=== PATIENT | male | born 1955 | race Two or more races ===

== ENCOUNTER 2024-06-05 11:42 | Inpatient (IN) | payer OTHER ==
[~2024-06-05] VITALS: Ht 177.8 cm; Wt 108.7 kg
[~2024-06-05 11:42] MED LIST: GENT0.1C3 EX; PRED10TA PO
--- NOTE | 2024-06-05 11:58 | ED.PDOC ---
HPI Comments HPI: Poor Historian. History obtained from both the patient and EMS 68-year-old male brought in by ambulance from home for evaluation of a fall that happened at home. When EMS arrived, patient stated that he fell because he felt very dizzy when he was getting out of bed. When they checked his initial vitals his heart rate was in the 40s and his blood pressure was in the 80s and he felt weak and wobbly. His blood pressure and heart rate improved as they lifted him up and he feels better at this moment that he feel generalized weakness still. Patient is still undergoing treatment for pneumonia on antibiotics but does not know the name of it. Patient is not on oxygen at home. Patient is on albuterol and prednisone. Vitals: Temp: 98.3 F RR: 20 02 sat : 97% on room air HR: 91 BP: 141/73 PMH: CKD on peritoneal dialysis, DM, Hypertension,hyperlipidemia, bradycardia anemia, sleep apnea, TIA, L carotid stenosis, cryptogenic cirrhosis, diabetic foot ulcer, hyperphosphatemia, TIA, PSH: unknown Social history: denies tobacco use, denies ETOH use, denies drug use Medications: insulin Allergies: NSAIDS REVIEW OF SYSTEMS: CONSTITUTIONAL: Denies acute: fever, diaphoresis, chills, HEAD: Denies acute: headache, photophobia Eyes: Denies acute: Double vision, vision loss, eye pain, eye discharge. EARS: Denies acute: tinnitus, hearing loss, ear discharge, ear pain, THROAT: Denies acute: sore throat, swelling, difficulty swallowing , pain with swallowing, change in voice. NECK: Denies acute: neck pain, neck swelling, stiff neck. HEART: Denies acute : chest pain, palpitations, LUNGS: Denies acute: SOB, wheezing, cough, hemoptysis ABDOMEN: Denies acute: abdominal pain, Nausea, Vomiting, diarrhea, melena , hematemesis, hematochezia SKIN: Denies acute: rash, redness, lesions, itchiness. EXTREMITIES: Denies acute: calf pain, numbness, tingling, weakness, denies pain in extremity. Denies acute: Low back pain. Neuro: Denies acute: focal neurological deficit, motor or sensory focal neurological deficit, tremors, seizure like activity, confusion, change in mental status, loss of bowel or bladder function, cauda equina like symptoms. : Denies acute: dysuria, hematuria, flank pain, increase in urinary frequency. PSYCH: Denies acute: hallucination, suicidal ideation, homicidal ideation. PHYSICAL EXAM: General: no acute distress, awake and alert. Head: normocephalic, atraumatic. Neck: supple, trachea is midline, no swelling. Throat: Normal phonation. Eyes:, no erythema, no purulent discharge, no proptosis, no icterus. Heart: regular rate, regular rhythm, no significant murmur appreciated. Lungs: no apparent respiratory distress, Able to speak in full sentences. Mild right greater than left wheezing, right greater than left rhonchi, no crackles. No stridors Abdomen: non tender to palpation, non distended, soft, no guarding, no rebound, + bowel sounds. Noted peritoneal dialysis catheter. Neuro: Awake, Alert, oriented to name, self, situation, follows commands GCS=15. Speech is normal. Skin: no petechia, no purpura, no cyanosis, non-pale, not jaundice. Lower extremities: --2/4 - Pitting edema no deformity, no focal swelling, no calf TTP. Makes eye contact. moves all four extremities. Chief Complaint: Shortness of Breath Time Seen by MD: 11:47 Reviewed Notes: Nurses Notes, Medications, Allergies Allergies: Coded Allergies: NSAIDs (Verified Allergy, Unknown, 06/05/24) Information Source: Patient, Emergency Med Personnel Mode of Arrival: EMS Past Medical History PAST MEDICAL HISTORY: DM, High Lipids, TIA Surgical History: Unknown Family History Family History: Unknown Social History Smoker: Non-Smoker Alcohol: Denies ETOH Use Drugs: Denies Drug Use Lives In: Home Was a procedure done? Was a procedure done?: No X-Ray, Labs, Meds, VS Vital Signs Date Time Temp Pulse Resp B/P (MAP) Pulse Ox O2 Delivery O2 Flow Rate FiO2 06/05/24 16:00 83 25 155/68 (97) 99 06/05/24 16:00 83 06/05/24 15:31 133/62 06/05/24 14:56 83 06/05/24 14:40 82 25 92 Room Air* 0 21 06/05/24 14:36 98.0 82 25 155/63 (93) 98.0 06/05/24 12:17 88 18 96 Room Air* 0 06/05/24 12:16 97.8 88 18 136/67 (90) 96 97.8 06/05/24 12:12 20 97 Room Air* 0 21 06/05/24 12:05 98.3 92 20 141/73 (95) 97 06/05/24 11:42 89 Lab Test 06/05/24 15:14 06/05/24 13:04 06/05/24 12:20 Range/Units Lactic Acid Level 1.6 3.5 *H 0.4-2.0 mmol/L Troponin I High Sensitivity 164 *H 190 *H 187 *H </=54 ng/L White Blood Count 9.8 4.4-10.8 10^3/uL Red Blood Count 3.02 L 4.5-5.90 10^6/uL Hemoglobin 9.7 L 13.5-17.5 g/dL Hematocrit 28.9 L 41.0-53.0 % Mean Corpuscular Volume 95.5 80.0-100.0 fL Mean Corpuscular Hemoglobin 32.0 28.0-32.0 pg Mean Corpuscular Hemoglobin Concent 33.5 32.0-36.0 g/dL Red Cell Distribution Width 17.2 H 11.8-14.3 % Platelet Count 195 140-450 10^3/uL Mean Platelet Volume 7.1 6.9-10.8 fL Neutrophils (%) (Auto) 86.4 H 37.0-80.0 % Lymphocytes (%) (Auto) 4.1 L 10.0-50.0 % Monocytes (%) (Auto) 8.5 0.0-12.0 % Eosinophils (%) (Auto) 0.4 0.0-7.0 % Basophils (%) (Auto) 0.6 0.0-2.0 % Neutrophils # (Auto) 8.5 1.6-8.6 10 ^3/uL Lymphocytes # (Auto) 0.4 0.4-5.4 10 ^3/uL Monocytes # (Auto) 0.8 0-1.3 10 ^3/uL Eosinophils # (Auto) 0 0-0.8 10 ^3/uL Basophils # (Auto) 0.1 0-0.2 10 ^3/uL Nucleated Red Blood Cells 0.3 % Sodium Level 131 L 136-145 mmol/L Potassium Level 5.0 3.5-5.1 mmol/L Chloride Level 92 L 98-107 mmol/L Carbon Dioxide Level 25 20-31 mmol/L Anion Gap 14 5-15 Blood Urea Nitrogen 60 H 9-23 mg/dL Creatinine 11.19 *H 0.700-1.30 mg/dL Glomerular Filtration Rate Calc 5 >90 mL/min BUN/Creatinine Ratio 5.4 L 10.0-20.0 Serum Glucose 257 H 74-106 mg/dL Calcium Level 9.7 8.7-10.4 mg/dL Total Bilirubin < 0.2 L 0.2-1.0 mg/dL Aspartate Amino Transferase (AST) 11 L 13-40 U/L Alanine Aminotransferase (ALT) 18 7-40 U/L Alkaline Phosphatase 119 H 46-116 U/L B-Type Natriuretic Peptide 378.25 0-100 pg/mL Total Protein 6.6 5.7-8.2 g/dL Albumin 3.9 3.2-4.8 g/dL Current Medications Medications (Trade) Dose Ordered Sig/Curt Route Start Time Stop Time Status Last Admin Piperacillin Sod/ Tazobactam Sod 100 ml @ 100 mls/hr ONCE ONCE IV 06/05/24 15:00 06/05/24 15:59 DC 06/05/24 15:31 Furosemide (Lasix Injection) 40 mg ONCE ONCE IV 06/05/24 15:00 06/05/24 15:02 DC 06/05/24 15:31 [place] [address] Ph: [phone] DIAGNOSTIC IMAGING Diagnostic Imaging Report : [id number] Signed PATIENT: JA SHELDON ACCT: [id number] UNIT: [id number] : 1955 LOC: ER ROOM / BED: / AGE / SEX: 68 / M ADM STATUS: REG ER SERVICE 1159 ORDERING PHYSICIAN: BAN ESCALONA DO PROCEDURE(s): CXRP - CHEST PORTABLE REASON: weak, hypotensive, kobi, PNA ORDER NUMBER(s): [id number], ACCESSION NUMBER(s): [id number] EXAM: XY CHEST PORTABLE Indication: weak, hypotensive, kobi, PNA Technique: Single frontal view of the chest was obtained Comparison: None FINDINGS: Lines and Tubes: None Lungs: Diffuse interstitial opacities. Pleura: No effusion. No pneumothorax. Cardiomediastinal contours: Unremarkable Bones: No acute osseous abnormality. IMPRESSION: Diffuse interstitial opacities suggestive of pulmonary vascular congestion versus atypical infection. ATED BY: CLINTON DO MD DICTATED DATE/TIME: 06/05/241306 SIGNED BY: CLINTON DO MD SIGNED DATE/TIME: 06/05/241306 CC: Time of 1ST Reevaluation: 15:18 (The case was discussed with the [facility] admitting team (HPI, physical exam, labs and diagnostic tests that were available at the time of disposition, ED course, treatment plan) on the phone. They authorized us to admit the patient to our hospital/ service given that the patient's troponin is rising. Authorization #[id number] Dr. Guillaume) Patient Education/Counseling: Diagnosis, Treatment Family Education/Counseling: No Family Present Additional Information Patient presented with the above HPI.-- fall injury---workup was initiated. patient was found with the above mentioned diagnosis. the following medications were ordered: Lasix, Zosyn the following tests were ordered: EKGx3, troponin x3, chest x-ray, UA, lactic acid, CMP, CBC, BNP Patient ED course and VS have been stabilized. Patient has been reassessed in the ED and remained in a stable condition. Patient has been observed in the ED adequate length of time to insure improvement/stability. Escalation of care considered: Consideration of escalation to observation or admission. patient was admitted to the medicine team for further evaluation and treatment of their presentation. All the reports of any imaging studies that were ordered by myself were reviewed by myself. Departure 1 Departure Time of Disposition: 12:52 Impression: Primary Impression: Hypotension Additional Impressions: Elevated troponin Elevated lactic acid level End stage renal disease NSTEMI (non-ST elevated myocardial infarction) Disposition: ADMITTED INPATIENT Condition: Guarded Discharged With: Self Critical Care Note Critical Care Time?: No Heart Score Heart Score: Heart Score Response (Comments) Value History Moderate Suspicious 1 Age >65 2 Risk Factors >3 or Hx ASHD 2 Troponin >3 x's Normal limit 2 Total 7 I personally scribed for BAN ESCALONA DO ([email or web address]) on 06/05/24 at 15:34. Electronically submitted by Nicci Maza (VÍCTOR). BAN ESCALONA DO Jun 05, 2024 11:58
[2024-06-05 12:17] VITALS: PULSE 88; RESP 18; O2SAT 96
[2024-06-05 12:33] LABS: Basophils # (auto) 0.1 10 ^3/uL (0-0.2); Basophils % (auto) 0.6 % (0.0-2.0); Eosinophils # (auto) 0 10 ^3/uL (0-0.8); Eosinophils % (auto) 0.4 % (0.0-7.0); Hematocrit 28.9 % (41.0-53.0); Hemoglobin 9.7 g/dL (13.5-17.5); Lymphocytes # (auto) 0.4 10 ^3/uL (0.4-5.4); Lymphocytes % (auto) 4.1 % (10.0-50.0); Mean Corpuscular Hgb Conc. 33.5 g/dL (32.0-36.0); Mean Corpuscular Volume 95.5 fL (80.0-100.0); Monocytes # (auto) 0.8 10 ^3/uL (0-1.3); Monocytes % (auto) 8.5 % (0.0-12.0); Neutrophils # (auto) 8.5 10 ^3/uL (1.6-8.6); Neutrophils % (auto) 86.4 % (37.0-80.0); Nucleated Red Blood Cells % 0.3 %; Platelet Count (auto) 195 10^3/uL (140-450); Red Blood Cells 3.02 10^6/uL (4.5-5.90); Red Cell Distribution Width 17.2 % (11.8-14.3); White Blood Cell 9.8 10^3/uL (4.4-10.8)
[2024-06-05 12:46] LABS: Alanine Aminotransferase 18 U/L (7-40); Albumin 3.9 g/dL (3.2-4.8); Anion Gap 14 (5-15); BUN/Creatinine Ratio 5.4 (10.0-20.0); Calcium 9.7 mg/dL (8.7-10.4); Carbon Dioxide 25 mmol/L (20-31); Total Protein 6.6 g/dL (5.7-8.2)
[2024-06-05 12:48] LABS: Blood Urea Nitrogen 60 mg/dL (9-23); Chloride 92 mmol/L (98-107); Glucose 257 mg/dL (74-106); Sodium 131 mmol/L (136-145)
[2024-06-05 12:50] LABS: Alkaline Phosphatase 119 U/L (46-116); Aspartate Aminotransferase 11 U/L (13-40)
[2024-06-05 12:51] LABS: Lactic Acid w/Reflex 3.5 mmol/L (0.4-2.0)
[2024-06-05 13:04] LABS: Bilirubin, Total < 0.2 mg/dL (0.2-1.0)
--- NOTE | 2024-06-05 13:08 | DVH ---
EXAM: XY CHEST PORTABLE Indication: weak, hypotensive, kobi, PNA Technique: Single frontal view of the chest was obtained Comparison: None FINDINGS: Lines and Tubes: None Lungs: Diffuse interstitial opacities. Pleura: No effusion. No pneumothorax. Cardiomediastinal contours: Unremarkable Bones: No acute osseous abnormality. IMPRESSION: Diffuse interstitial opacities suggestive of pulmonary vascular congestion versus atypical infection.
[2024-06-05 14:40] VITALS: PULSE 82; RESP 25; O2SAT 92
[2024-06-05] MEDS: PIPERACILLIN-TAZOB 3.375GM 100 ML IV ONE (15:31)
[2024-06-05] MEDS: FUROSEMIDE 40 MG/4 ML VIAL IV ONE (15:31)
[2024-06-05] MEDS ORDERED: ONDANSETRON HCL 4 MG/2 ML VIAL IV PRN (16:30)
[2024-06-05] MEDS ORDERED: NITROGLYCERIN 0.4 MG SL TAB SL PRN (16:30)
[2024-06-05] MEDS ORDERED: ZOLPIDEM TARTRATE 5 MG TAB PO PRN (16:30)
[2024-06-05] MEDS ORDERED: MORPHINE SULFATE 4 MG/ML SYR/VIAL IV PRN (16:30)
[2024-06-05] MEDS ORDERED: MAALOX PLUS or MAALOX 30 ML PO PRN (16:30)
[2024-06-05] MEDS ORDERED: LORazepam 0.5 MG TAB PO PRN (16:30)
--- NOTE | 2024-06-05 16:44 | DVHHP2 ---
History of Present Illness Reason for Visit: Cough shortness of breath History of Present Illness 68-year-old past medical history of hypertension hyperlipidemia sleep apnea TIA liver cirrhosis and ESRD on peritoneal dialysis patient comes for complaints of shortness of breath and cough patient on initial evaluation was shown to have pneumonia in outpatient setting during the pneumonia patient was evaluated in outpatient setting given p.o. antibiotics states that he has not improved whatsoever during the evaluation in the ED patient was being treated for pneumonia and during blood work evaluation was also found to have elevated troponins patient will be admitted for the further evaluation and management of community-acquired pneumonia and also noted troponinemia Cardiovascular: CAD, CHF, HTN Pulmonary: COPD Renal/: Chronic renal insuff Endocrine: Diabetes Review of Systems Constitutional: Yes: Weakness; No: Fever, Chills, Sweats, Malaise, Other Eyes: No: Pain, Vision change, Conjunctivae inflammation, Eyelid inflammation, Other, Redness ENT: No: Ear pain, Ear discharge, Nose pain, Nose discharge, Nose congestion, Mouth pain, Mouth swelling, Throat pain, Throat swelling, Other Respiratory: Cough, Dry, Shortness of breath, SOB with excertion; No: Wheezing, Hemoptysis, Pleuritic Pain, Sputum, Wheezing, Other Cardiovascular: Chest Pain, Palpitations; No: Orthopnea, Paroxysmal Noc. Dyspnea, Edema, Lt Headedness, Other Gastrointestinal: No: Nausea, Vomiting, Abdominal Pain, Diarrhea, Constipation, Melena, Hematochezia, Other Genitourinary: No Dysuria, No Frequency, No Incontinence, No Hematuria, No Retention, No Other Musculoskeletal: No: other, neck pain, shoulder pain, arm pain, back pain, hand pain, leg pain, foot pain Skin: No: Rash, Lesions, Jaundice, Bruising, Other Neurological: No: Weakness, Numbness, Incoordination, Change in speech, Confusion, Seizures, Other Allergies: Coded Allergies: NSAIDs (Verified Allergy, Unknown, 06/05/24) Exam Vital Signs Vital Signs Date Time Temp Pulse Resp B/P (MAP) Pulse Ox O2 Delivery O2 Flow Rate FiO2 06/05/24 15:31 133/62 06/05/24 14:56 83 06/05/24 14:36 98.0 25 98.0 06/05/24 12:17 96 Room Air* 0 21 General Appearance: Alert, Oriented X3, moderate distress HEENT: Atraumatic, PERRLA Respiratory: Clear to auscultation, Normal air movement Cardiovascular: Regular rate, Normal S1, Normal S2 Abdominal: Normal bowel sounds, Soft Extremities: No clubbing, No cyanosis Skin: No rashes, No breakdown Neuro: Normal gait, Normal speech Psych/Mental Status: Mood NL Labs/Xrays Labs Test 06/05/24 15:14 06/05/24 12:20 Range/Units Lactic Acid Level 1.6 0.4-2.0 mmol/L Troponin I High Sensitivity 164 *H </=54 ng/L White Blood Count 9.8 4.4-10.8 10^3/uL Red Blood Count 3.02 L 4.5-5.90 10^6/uL Hemoglobin 9.7 L 13.5-17.5 g/dL Hematocrit 28.9 L 41.0-53.0 % Mean Corpuscular Volume 95.5 80.0-100.0 fL Mean Corpuscular Hemoglobin 32.0 28.0-32.0 pg Mean Corpuscular Hemoglobin Concent 33.5 32.0-36.0 g/dL Red Cell Distribution Width 17.2 H 11.8-14.3 % Platelet Count 195 140-450 10^3/uL Mean Platelet Volume 7.1 6.9-10.8 fL Neutrophils (%) (Auto) 86.4 H 37.0-80.0 % Lymphocytes (%) (Auto) 4.1 L 10.0-50.0 % Monocytes (%) (Auto) 8.5 0.0-12.0 % Eosinophils (%) (Auto) 0.4 0.0-7.0 % Basophils (%) (Auto) 0.6 0.0-2.0 % Neutrophils # (Auto) 8.5 1.6-8.6 10 ^3/uL Lymphocytes # (Auto) 0.4 0.4-5.4 10 ^3/uL Monocytes # (Auto) 0.8 0-1.3 10 ^3/uL Eosinophils # (Auto) 0 0-0.8 10 ^3/uL Basophils # (Auto) 0.1 0-0.2 10 ^3/uL Nucleated Red Blood Cells 0.3 % Sodium Level 131 L 136-145 mmol/L Potassium Level 5.0 3.5-5.1 mmol/L Chloride Level 92 L 98-107 mmol/L Carbon Dioxide Level 25 20-31 mmol/L Anion Gap 14 5-15 Blood Urea Nitrogen 60 H 9-23 mg/dL Creatinine 11.19 *H 0.700-1.30 mg/dL Glomerular Filtration Rate Calc 5 >90 mL/min BUN/Creatinine Ratio 5.4 L 10.0-20.0 Serum Glucose 257 H 74-106 mg/dL Calcium Level 9.7 8.7-10.4 mg/dL Total Bilirubin < 0.2 L 0.2-1.0 mg/dL Aspartate Amino Transferase (AST) 11 L 13-40 U/L Alanine Aminotransferase (ALT) 18 7-40 U/L Alkaline Phosphatase 119 H 46-116 U/L B-Type Natriuretic Peptide 378.25 0-100 pg/mL Total Protein 6.6 5.7-8.2 g/dL Albumin 3.9 3.2-4.8 g/dL Assessment/Plan Assessment/Plan Admit to telemetry Community-acquired pneumonia IV antibiotics Patient is started on vanc and Zosyn in the ED we will continue P.r.n. breathing treatments Patient with a history of ESRD elevated labs in the setting of ESRD Renal evaluation for the continuation of peritoneal dialysis which patient does nightly We will continue patient's home medications as tolerated Elevated troponins Patient denies any symptoms of chest pain Cardiology evaluation suspected troponinemia in the signs of fluid overload and cardiac stress Plan discussed with: Patient My Orders Orders - LIZANDRO PERDOMO MD Procedure Category Date Status Time *Dr. [facility] CONS 06/05/24 Transmitted -[place] 16:26 * Cardiology Consult CONS 06/05/24 Transmitted 16:26 Admit ADMIT 06/05/24 Transmitted 16:26 Code Status CODE 06/05/24 Transmitted 16:26 Cardiac DIET 06/05/24 Transmitted Diet-2gna,Lofat,Lochol Dinner Atorvastatin (Lipitor) PHA 06/05/24 Logged 22:00 Carvedilol Tablet PHA 06/05/24 Logged (Coreg Tablet) 22:00 Morphine Sulfate PHA 06/05/24 Logged Injection 16:30 Acetaminophen Tablet PHA 06/05/24 Logged (Tylenol Tablet) 16:30 Zolpidem Tartrate PHA 06/05/24 Logged (Ambien) 16:30 Lorazepam Tablet PHA 06/05/24 Logged (Ativan Tablet) 16:30 Docusate Sodium PHA 06/06/24 Logged Capsule (Colace 10:00 Complete Blood Count LAB 06/06/24 Verified 04:00 Comprehensive LAB 06/06/24 Verified Metabolic Panel 04:00 Nitroglycerin PHA 06/05/24 Logged Sublingual (Ntrostat 16:30 Ondansetron Hcl PHA 06/05/24 Logged (Zofran) 16:30 Electrocardigram EKG 06/05/24 Logged 16:26 Alum & Mag PHA 06/05/24 Logged Hydrox-Simethicone 16:30 Troponin-I Hs LAB 06/05/24 Logged 16:26 Lisinopril Tablet PHA 06/06/24 Logged (Zestril Tablet) 10:00 Cardiac ROCÍO 06/05/24 In Process Rehabilitation - Outpa Notify Md Of Changes [facility] 06/05/24 In Process From Base 16:26 Computer Systems Technology Instructor For [facility] 06/05/24 In Process 24 Hours 16:26 Emergency Dysrhythmia [facility] 06/05/24 In Process Protocol 16:26 Rhythm Strips Once [facility] 06/05/24 In Process Every Shift 16:26 Oxygen By Nasal RT 06/05/24 Transmitted Cannula 16:26 Vancomycin Per PHA 06/05/24 Logged Pharmacy 16:45 Piperacillin-Tazob [facility] 06/05/24 Logged 3.375gm (Zosyn 3.375g 22:00 Problem List: (1) End stage renal disease (2) Elevated troponin (3) NSTEMI (non-ST elevated myocardial infarction) (4) Elevated lactic acid level Date of Service: Jun 05, 2024 Billing Provider: LIZANDRO PERDOMO MD Common Visit Codes: 62711-[id number] INP/OBS CARE (HIGH) LIZANDRO PERDOMO MD Jun 05, 2024 16:44
[2024-06-05] MEDS ORDERED: VANCOMYCIN PER PHARMACY 0 MG IV SCH (16:45)
[2024-06-05] MEDS: VANCOMYCIN 1GM/250ML KIT 250 ML IV ONE (17:52)
--- NOTE | 2024-06-05 18:56 | ECG ---
[facility] Test Date: 2024-06-05 Test Time: 11:41:44 Pat Name: TREVOR SHELDON Department: ED Room: 0209T Gender: M Taproom Attendant: JENAE : 1955 Requested By: BAN ESCALONA Order Number: [id number] Reading MD: Perry Ward Measurements Intervals [place] Rate: 89 P: 162 RI: 220 QRS: -7 QRSD: 77 T: 6 QT: 337 QTc: 410 Interpretive Statements Sinus or ectopic atrial rhythm Prolonged RI interval Borderline ST depression, diffuse leads Electronically Signed On 06-12-2024 9:46:14 PST by Perry Ward Please click the below link to view image of tracing.
[2024-06-05 19:20] VITALS: O2SAT 94
[2024-06-05] MEDS ORDERED: PIPERACILLIN-TAZOB 3.375GM 100 ML IV SCH (22:00)
[2024-06-05] MEDS: PIPERACILLIN-TAZOB 2.25GM 50 ML IV SCH (22:28)
[2024-06-05] MEDS: CARVEDILOL 3.125 MG TAB PO SCH (22:28)
[2024-06-05] MEDS: ATORVASTATIN 20 MG TAB PO SCH (22:29)
[2024-06-05 23:27] VITALS: BP 119/99; PULSE 95; RESP 19; TEMP 97.7; O2SAT 97
[2024-06-05 23:52] VITALS: BP 119/99; PULSE 95; RESP 18; RESP 19; TEMP 97.7; O2SAT 97
[2024-06-06] VITALS (17 sets, daily range): BP systolic 119–186; BP diastolic 43–99; PULSE 73–90; RESP 18–20; TEMP 97.5–98.1; O2SAT 91–100
[2024-06-06] MEDS ORDERED: TERA1CAP52 PO (00:31)
[2024-06-06] MEDS ORDERED: ATOR10TA PO (00:31)
[2024-06-06] MEDS ORDERED: ALLO100T PO (00:31)
[2024-06-06] MEDS: ALBUTEROL SULF 2.5 MG/0.5ML(0.5%) NEB SOLN NEB PRN (02:20)
[2024-06-06] MEDS: ALBUTEROL SULF 2.5 MG/0.5ML(0.5%) NEB SOLN ONE (02:20)
[2024-06-06 07:16] LABS: Hematocrit 25.8 % (41.0-53.0); Hemoglobin 8.8 g/dL (13.5-17.5); Mean Corpuscular Hemoglobin 32.2 pg (28.0-32.0); Mean Corpuscular Hgb Conc. 34.2 g/dL (32.0-36.0); Platelet Count (auto) 182 10^3/uL (140-450); Red Blood Cells 2.74 10^6/uL (4.5-5.90); Red Cell Distribution Width 16.5 % (11.8-14.3); White Blood Cell 8.5 10^3/uL (4.4-10.8)
[2024-06-06 07:41] LABS: Alanine Aminotransferase 18 U/L (7-40); Albumin 3.5 g/dL (3.2-4.8); Alkaline Phosphatase 99 U/L (46-116); Anion Gap 15 (5-15); Aspartate Aminotransferase 21 U/L (13-40); BUN/Creatinine Ratio 7.1 (10.0-20.0); Calcium 8.9 mg/dL (8.7-10.4); Carbon Dioxide 26 mmol/L (20-31)
[2024-06-06 07:43] LABS: Band Neutrophils % (manual) 0
[2024-06-06 07:44] LABS: Basophils % (manual) 0 (0.0-2.0); Blast Cells 0; Eosinophils % (manual) 0 (0-7); Metamyelocytes % 0; Myelocytes % 0; Promyelocytes % 0; Reactive Lymphocytes 0
[2024-06-06 07:52] LABS: Blood Urea Nitrogen 88 mg/dL (9-23); Chloride 88 mmol/L (98-107); Glucose 237 mg/dL (74-106); Potassium 5.4 mmol/L (3.5-5.1); Sodium 129 mmol/L (136-145)
[2024-06-06 07:53] LABS: Bilirubin, Total < 0.2 mg/dL (0.2-1.0); Total Protein 5.6 g/dL (5.7-8.2)
[2024-06-06 08:56] LABS: Lymphocytes % (manual) 9 (10.0-50.0); Monocytes % (manual) 9 (0-12); Platelet Estimate Adequate
[2024-06-06] MEDS: LISINOPRIL 5 MG TAB PO SCH (10:09)
[2024-06-06] MEDS: DOCUSATE SOD 100 MG CAP PO SCH (10:09)
--- NOTE | 2024-06-06 12:08 | DVHINCON2 ---
Date Seen: Jun 06, 2024 Referring Physician MD Tj Reason for Consultation Elevated troponins History of Present Illness 68-year-old male with PMH for HTN, HLD, diabetes, WOODY, TIA, ESRD on PD presented to the hospital with cough and shortness of breath. Patient states symptoms started roughly 1 week prior and has progressively gotten worse. Patient actually went to urgent care last week for which he was given antibiotics so did not help. Upon evaluation in the ED patient noted to have CXR showing diffuse interstitial opacities suggestive of pulmonary vascular congestion versus atypical infection. BNP 378. Troponins trending 187, 190, 164, 152. Lactic acid 3.5. Patient denies any chest pain, palpitations. EKG reviewed and shows sinus rhythm at 83 bpm. Past Medical History HTN ESRD on PD HLD WOODY Past Surgical History Denies previous cardiac surgeries Family History: Hypertension G8 MOTHER G8 FATHER Social History Denies alcohol, tobacco, or illicit drug use. Allergies: Coded Allergies: NSAIDs (Verified Allergy, Unknown, 06/05/24) Home Meds Reported Medications Terazosin Hcl (Terazosin Hcl) 1 Mg Cap, 1 MG PO for 30 Days, MG 06/06/24 Atorvastatin Calcium (Lipitor) 10 Mg Tab, 1 TAB PO QPM, #90 TAB 1 Refill 06/06/24 Allopurinol (Allopurinol) 100 Mg Tab, 10 MG PO DAILY for 30 Days, MG 06/06/24 Current Medications Current Medications Medications (Trade) Dose Ordered Sig/Curt Route PRN Reason Start Time Stop Time Status Last Admin Atorvastatin Calcium (Lipitor) 40 mg HS PO 06/05/24 22:00 06/05/24 22:29 Carvedilol (Coreg Tablet) 6.25 mg Q12HR PO 06/05/24 22:00 06/06/24 10:10 Morphine Sulfate 2 mg Q30MP PRN IV FOR CHEST PAIN 06/05/24 16:30 Acetaminophen (Tylenol Tablet) 650 mg Q6HP PRN PO MILD PAIN (1-3 PAIN SCALE) 06/05/24 16:30 Zolpidem Tartrate (Ambien) 5 mg QHSP PRN PO FOR INSOMNIA 06/05/24 16:30 Lorazepam (Ativan Tablet) 0.5 mg Q6HP PRN PO ANXIETY 06/05/24 16:30 Docusate Sodium (Colace Capsule) 100 mg DAILY PO 06/06/24 10:00 06/06/24 10:09 Nitroglycerin (Ntrostat Sublingual) 0.4 mg Q5MINP PRN SL FOR CHEST PAIN 06/05/24 16:30 Ondansetron HCl (Zofran) 4 mg Q4HP PRN IV NAUSEA / VOMITING 06/05/24 16:30 Al Hydrox/Mg Hydrox/Simethicone (Maalox Plus) 30 ml Q6HPRN PRN PO FOR STOMACH DISTRESS 06/05/24 16:30 Lisinopril (Zestril Tablet) 10 mg DAILY PO 06/06/24 10:00 06/06/24 10:09 Vancomycin HCl 0 ml @ 0 mls/hr UD IV 06/05/24 16:45 Piperacillin Sod/ Tazobactam Sod 100 ml @ 100 mls/hr Q8HR IV 06/05/24 22:00 UNV Piperacillin Sod/ Tazobactam Sod 50 ml @ 12.5 mls/hr Q12HR IV 06/05/24 22:00 06/06/24 10:06 Clonidine HCl (Catapres Tablet) 0.2 mg Q6HP PRN PO SBP>160 06/05/24 23:15 Albuterol (Ventolin Medneb) 2.5 mg Q4HPRN PRN NEB SHORTNESS OF BREATH 06/06/24 02:15 06/06/24 02:20 Review of Systems Constitutional: No: Fever, Chills, Sweats, , Other positive: Weakness, Malaise Eyes: No: Pain, Vision change, Conjunctivae inflammation, Eyelid inflammation, Other, Redness ENT: No: Ear pain, Ear discharge, Nose pain, Nose discharge, Nose congestion, Mouth pain, Mouth swelling, Throat pain, Throat swelling, Other Respiratory: No: , Dry, , Wheezing, Hemoptysis, Pleuritic Pain, Sputum, Wheezing, Other positive: Cough, Shortness of breath, SOB with exertion Cardiovascular: ; No: Chest Pain Palpitations, Orthopnea, Paroxysmal Noc. Dyspnea, Edema, Lt Headedness, Other Gastrointestinal: No: Nausea, Vomiting, Abdominal Pain, Diarrhea, Constipation, Melena, Hematochezia, Other Genitourinary: No Dysuria, No Frequency, No Incontinence, No Hematuria, No Retention, No Other Musculoskeletal: neck pain; No: other, shoulder pain, arm pain, back pain, hand pain, leg pain, foot pain Skin: No: Rash, Lesions, Jaundice, Bruising, Other Neurological: Other (Dizziness, headache.); No: Weakness, Numbness, Incoordination, Change in speech, Confusion, Seizures Vital Signs Vital Signs Date Time Temp Pulse Resp B/P (MAP) Pulse Ox O2 Delivery O2 Flow Rate FiO2 06/06/24 10:10 84 148/86 06/06/24 09:00 97.8 20 93 97.8 06/06/24 02:32 2.0 28 06/06/24 02:17 Nasal Cannula* Physical Exam General appearance: Patient is well-developed, well-nourished, in mild acute distress. HEENT: Exam shows: Normocephalic, atraumatic, PERRLA, EOMI Neck: Supple, no bruits Chest: Equal chest excursion bilaterally. Breath sounds coarse rhonchi/rales Heart: Rhythm: Regular rate; no murmur or gallop Abdomen: Exam shows: Soft, nontender, nondistended Musculoskeletal: No clubbing, no cyanosis, no lower extremity edema Dermatology: Skin warm, moist. Neurological: Exam shows: Alert and oriented x4, normal speech Available prior records, labs, EKG, rhythm strips reviewed and interpreted Labs/Diagnostic Data Labs Test 06/06/24 05:47 06/05/24 18:09 06/05/24 15:14 06/05/24 12:20 Range/Units White Blood Count 8.5 4.4-10.8 10^3/uL Red Blood Count 2.74 L 4.5-5.90 10^6/uL Hemoglobin 8.8 L 13.5-17.5 g/dL Hematocrit 25.8 #L 41.0-53.0 % Mean Corpuscular Volume 94.0 80.0-100.0 fL Mean Corpuscular Hemoglobin 32.2 H 28.0-32.0 pg Mean Corpuscular Hemoglobin Concent 34.2 32.0-36.0 g/dL Red Cell Distribution Width 16.5 H 11.8-14.3 % Platelet Count 182 140-450 10^3/uL Mean Platelet Volume 7.0 6.9-10.8 fL Neutrophils (%) (Auto) 37.0-80.0 % Lymphocytes (%) (Auto) 10.0-50.0 % Monocytes (%) (Auto) 0.0-12.0 % Basophils (%) (Auto) 0.0-2.0 % Neutrophils # (Auto) 1.6-8.6 10 ^3/uL Lymphocytes # (Auto) 0.4-5.4 10 ^3/uL Monocytes # (Auto) 0-1.3 10 ^3/uL Differential Total Cells Counted 100.0 100 Neutrophils % (Manual) 82 H 37.0-80.0 Band Neutrophils % (Manual) 0 Lymphocytes % (Manual) 9 L 10.0-50.0 Monocytes % (Manual) 9 0-12 Eosinophils % (Manual) 0 0-7 Basophils % (Manual) 0 0.0-2.0 Metamyelocytes % (manual) 0 Myelocytes % (Manual) 0 Promyelocytes % (Manual) 0 Blast Cells % (Manual) 0 Reactive Lymphocytes 0 Platelet Estimate Adequate Sodium Level 129 L 136-145 mmol/L Potassium Level 5.4 H 3.5-5.1 mmol/L Chloride Level 88 L 98-107 mmol/L Carbon Dioxide Level 26 20-31 mmol/L Anion Gap 15 5-15 Blood Urea Nitrogen 88 #*H 9-23 mg/dL Creatinine 12.32 *H 0.700-1.30 mg/dL Glomerular Filtration Rate Calc 4 >90 mL/min BUN/Creatinine Ratio 7.1 L 10.0-20.0 Serum Glucose 237 H 74-106 mg/dL Calcium Level 8.9 8.7-10.4 mg/dL Total Bilirubin < 0.2 L 0.2-1.0 mg/dL Aspartate Amino Transferase (AST) 21 13-40 U/L Alanine Aminotransferase (ALT) 18 7-40 U/L Alkaline Phosphatase 99 46-116 U/L Total Protein 5.6 L 5.7-8.2 g/dL Albumin 3.5 3.2-4.8 g/dL Random Vancomycin Level 14.4 H 5-10 ug/mL Troponin I High Sensitivity 152 *H </=54 ng/L Lactic Acid Level 1.6 0.4-2.0 mmol/L Eosinophils (%) (Auto) 0.4 0.0-7.0 % Eosinophils # (Auto) 0 0-0.8 10 ^3/uL Basophils # (Auto) 0.1 0-0.2 10 ^3/uL Nucleated Red Blood Cells 0.3 % B-Type Natriuretic Peptide 378.25 0-100 pg/mL Assessment NSTEMI likely type 2 Lactic acidosis Acute on chronic HFpEF Pneumonia? ESRD on PD HLD Uncontrolled HTN Plan/Recommendation * Troponins stable, continue home dose aspirin (Known allergies to NSAIDS Tolerates Aspirin) and statin. * Follow-up echo * Bumex 2 mg IV x1, monitor response. Follow-up nephrology recs. * PD per Nephrology * Empiric antibiotics. * Continue on carvedilol and lisinopril, titrate as tolerated. May restart on home dose amlodipine 5 mg daily. Case Discussed with Dr Juarez. Troponins trending stable. Denies chest pain. Likely demand ischemia. EKG negative for significant ST abnormality. Continue medical management at this time, follow up echo. Continue blood pressure medication trending. Follow-up nephrology recs for diuresis. Thank you for allowing me to participate in the management of this patient. The treatment plan was discussed with and agreed upon by patient/family including requesting consultants and ordering of imaging/procedures. Critical care, time spent: 38 minutes This medical document was created using an electronic medical record system with voice recognition software and computerized dictation system. Although this doc ument has been carefully reviewed, there might still be some phonetic and typographical errors. Occasional wrong-word or ``sound-alike substitutions may have occurred due to the inherent limitations of voice recognition software. These areas are purely typographical due to imperfections of the software programs and do not reflect any compromise in the patient's medical care. Shawn triplett read the chart carefully and recognize, using context, where these substitutions have occurred. Plan discussed with: Patient Date of Service: Jun 06, 2024 Billing Provider: MALISSA RIVERA Cardiology Common Codes: [id number] INP/OBS CARE (High), [id number] CARE 30-74 MIN MALISSA RIVERA Jun 06, 2024 12:08
[2024-06-06] MEDS ORDERED: ALBUTEROL SULF 2.5 MG/0.5ML(0.5%) NEB SOLN NEB PRN (13:45)
[2024-06-06] MEDS: cefTRIAXone 1GM/50ML D5W 50 ML IV ONE (14:01)
[2024-06-06] MEDS: SODIUM ZIRCONIUM CYCL 10 GM PAK PO ONE (14:01)
[2024-06-06] MEDS: AZITHROMYCIN 500MG/ 250ML 250 ML IV ONE (14:02)
[2024-06-06] MEDS: BUMETANIDE 2.5mg/10ml (0.25 mg/ml) INJ IV ONE (14:02)
[2024-06-06] MEDS: ALBUTEROL SULF 2.5 MG/0.5ML(0.5%) NEB SOLN NEB SCH (14:10)
[2024-06-06] MEDS: IPRATROPIUM BROM 0.5 MG/2.5ML INH SOL NEB SCH (14:10)
--- NOTE | 2024-06-06 14:19 | DVHPN2 ---
Subjective Some shortness of breath. Last med neb treatment was 2:00 a.m. in the morning Reviewed: Care Plan, H&P, Labs, Medications, Previous Orders, Radiology, Other (Consultants) Changes from previous H/P or p: No Changes Respiratory: Shortness of breath Objective Vitals Vital Signs Date Time Temp Pulse Resp B/P (MAP) Pulse Ox O2 Delivery O2 Flow Rate FiO2 06/06/24 14:10 98 Nasal Cannula 2.0 06/06/24 14:10 80 18 06/06/24 14:10 28 06/06/24 14:02 143/74 06/06/24 13:00 97.5 97.5 Intake/Output Intake and Output 06/06/24 07:00 Intake Total 250 ml Balance 250 ml Intake Oral 250 ml # Voids 2 General Appearance: Alert, Oriented X3, Cooperative, mild distress HEENT: Atraumatic Lungs: Other (Crackles bilateral lungs with few rhonchi) Cardiovascular: Regular rate Abdomen: Normal bowel sounds, Soft, No tenderness Extremities: Other (1+ bilateral lower extremity edema) Medications Current Medications Medications Dose Ordered Sig/Curt Route Start Time Stop Time Status Last Admin Dose Admin Atorvastatin Calcium 40 mg HS PO 06/05/24 22:00 06/05/24 22:29 40 MG Carvedilol 6.25 mg Q12HR PO 06/05/24 22:00 06/06/24 10:10 6.25 MG Morphine Sulfate 2 mg Q30MP PRN IV 06/05/24 16:30 Acetaminophen 650 mg Q6HP PRN PO 06/05/24 16:30 Zolpidem Tartrate 5 mg QHSP PRN PO 06/05/24 16:30 Lorazepam 0.5 mg Q6HP PRN PO 06/05/24 16:30 Docusate Sodium 100 mg DAILY PO 06/06/24 10:00 06/06/24 10:09 100 MG Nitroglycerin 0.4 mg Q5MINP PRN SL 06/05/24 16:30 Ondansetron HCl 4 mg Q4HP PRN IV 06/05/24 16:30 Al Hydrox/Mg Hydrox/Simethicone 30 ml Q6HPRN PRN PO 06/05/24 16:30 Lisinopril 10 mg DAILY PO 06/06/24 10:00 06/06/24 10:09 10 MG Piperacillin Sod/ Tazobactam Sod 100 ml @ 100 mls/hr Q8HR IV 06/05/24 22:00 UNV Clonidine HCl 0.2 mg Q6HP PRN PO 06/05/24 23:15 Ceftriaxone Sodium 50 ml @ 100 mls/hr DAILY@09 IV 06/07/24 09:00 Azithromycin 250 ml @ 125 mls/hr DAILY IV 06/07/24 10:00 Albuterol 2.5 mg Q2HPRN PRN NEB 06/06/24 13:45 Albuterol 2.5 mg Q6HR NEB 06/06/24 18:00 06/06/24 14:10 2.5 MG Ipratropium [place] 0.5 mg Q6HR NEB 06/06/24 18:00 06/06/24 14:10 0.5 MG Laboratory Results Laboratory Tests 06/06/24 05:47 Chemistry Test 06/06/24 05:47 Albumin 3.5 g/dL (3.2-4.8) Calcium Level 8.9 mg/dL (8.7-10.4) Total Protein 5.6 g/dL (5.7-8.2) L LFT Test 06/06/24 05:47 Alanine Aminotransferase (ALT) 18 U/L (7-40) Alkaline Phosphatase 99 U/L (46-116) Aspartate Amino Transferase (AST) 21 U/L (13-40) Total Bilirubin < 0.2 mg/dL (0.2-1.0) L Assessment/Plan Assessment/Plan Acute on chronic heart failure COPD exacerbation and possible pneumonia Non-STEMI Sleep apnea Hypertension Dyslipidemia End-stage renal disease on peritoneal dialysis Coronary artery disease TIA Liver cirrhosis Plan: Nephrology for the peritoneal dialysis. Check BNP CBC CMP. Change antibiotics. Monitor blood pressure. Med nebs. We will start Zithromax and ceftriaxone. We will discontinue vancomycin and Zosyn. Unstable for transfer today. Total critical care spent on the case 35 minutes Further plan per orders Plan discussed with: Patient, Other (Nursing) My Orders Orders - KAITLYN ALBERTO MD Procedure Category Date Status Time Ceftriaxone 1gm/50ml PHA 06/07/24 In Process D5w (Rocephin) 09:00 Azithromycin 500mg/ PHA 06/07/24 In Process 250ml (Zithromax 50 10:00 Azithromycin 500mg/ PHA 06/06/24 In Process 250ml (Zithromax 50 12:45 B-Type Natriuretic LAB 06/07/24 Verified Peptide 06:00 Complete Blood Count LAB 06/07/24 Verified 06:00 Comprehensive LAB 06/07/24 Verified Metabolic Panel 06:00 Albuterol Medneb PHA 06/06/24 In Process (Ventolin Medneb) 13:45 Albuterol Medneb PHA 06/06/24 In Process (Ventolin Medneb) 18:00 Ipratropium Medneb PHA 06/06/24 In Process (Atrovent Medneb) 18:00 Date of Service: Jun 06, 2024 Billing Provider: KAITLYN ALBERTO MD Common Visit Codes: [id number] CARE 30-74 MIN KAITLYN ALBERTO MD Jun 06, 2024 14:19
[2024-06-06] MEDS: BUMETANIDE 2.5mg/10ml (0.25 mg/ml) INJ IV SCH (14:30)
[2024-06-06] MEDS: MUPIROCIN 2% OINT 15gm or 22gm TOP SCH (14:45)
[2024-06-06] MEDS: EPOETIN ALFA-EPBX 10,000 UNIT/1ML VIAL SC SCH (17:10)
[2024-06-06] MEDS: PERITONEAL DIALYSIS 2.5% SOLN 2,000 ML IP SCH (17:17)
[2024-06-06] MEDS: CALCIUM ACETATE 667 MG CAP PO SCH (17:44)
[2024-06-06] MEDS ORDERED: VANCOMYCIN 1GM/250ML KIT 250 ML IV ONE (18:00)
--- NOTE | 2024-06-06 19:04 | DVHINCON2 ---
Date of service: Jun 06, 2024 Referring Physician hospitalist Reason for Consultation ESRD on PD History of Present Illness 68-year-old male with past medical history of end-stage renal disease on peritoneal dialysis, hypertension, diabetes presented to the hospital complaining of shortness of breath. Reports he missed his peritoneal dialysis treatment 24 hours prior to presentation. Nephrology consulted due to fluid ov erload and hyperkalemia. Past Surgical History PD catheter Allergies: Coded Allergies: NSAIDs (Verified Allergy, Unknown, 06/05/24) Home Meds Reported Medications Terazosin Hcl (Terazosin Hcl) 1 Mg Cap, 1 MG PO for 30 Days, MG 06/06/24 Atorvastatin Calcium (Lipitor) 10 Mg Tab, 1 TAB PO QPM, #90 TAB 1 Refill 06/06/24 Allopurinol (Allopurinol) 100 Mg Tab, 10 MG PO DAILY for 30 Days, MG 06/06/24 Current Medications Current Medications Medications (Trade) Dose Ordered Sig/Curt Route PRN Reason Start Time Stop Time Status Last Admin Atorvastatin Calcium (Lipitor) 40 mg HS PO 06/05/24 22:00 06/05/24 22:29 Carvedilol (Coreg Tablet) 6.25 mg Q12HR PO 06/05/24 22:00 06/06/24 10:10 Docusate Sodium (Colace Capsule) 100 mg DAILY PO 06/06/24 10:00 06/06/24 10:09 Lisinopril (Zestril Tablet) 10 mg DAILY PO 06/06/24 10:00 06/06/24 10:09 Piperacillin Sod/ Tazobactam Sod 100 ml @ 100 mls/hr Q8HR IV 06/05/24 22:00 UNV Piperacillin Sod/ Tazobactam Sod 50 ml @ 12.5 mls/hr Q12HR IV 06/05/24 22:00 06/06/24 12:36 DC 06/06/24 10:06 Clonidine HCl (Catapres Tablet) 0.2 mg Q6HP PRN PO SBP>160 06/05/24 23:15 Albuterol (Ventolin Medneb) 2.5 mg Q4HPRN PRN NEB SHORTNESS OF BREATH 06/06/24 02:15 06/06/24 13:35 DC 06/06/24 02:20 Ceftriaxone Sodium 50 ml @ 100 mls/hr DAILY@09 IV 06/07/24 09:00 Azithromycin 250 ml @ 125 mls/hr DAILY IV 06/07/24 10:00 Albuterol (Ventolin Medneb) 2.5 mg Q2HPRN PRN NEB SHORTNESS OF BREATH 06/06/24 13:45 Albuterol (Ventolin Medneb) 2.5 mg Q6HR NEB 06/06/24 18:00 06/06/24 18:32 Ipratropium [place] (Atrovent Medneb) 0.5 mg Q6HR NEB 06/06/24 18:00 06/06/24 18:32 Bumetanide (Bumex Injection) 2.5 mg BIDD IV 06/06/24 14:30 06/06/24 17:45 Epoetin Pito-epbx (Retacrit) 10,000 unit TUTHSA SC 06/06/24 14:30 06/06/24 17:10 Peritoneal Dialysis Solution 2,000 ml @ 0 mls/hr Q4HR IP 06/06/24 18:00 06/06/24 17:17 Mupirocin (Bactroban 2% Ointment) 1 applic DAILY TOP 06/06/24 14:45 06/06/24 14:45 Calcium Acetate (Phoslo Capsule) 1,334 mg TIDWMEALS PO 06/06/24 18:00 06/06/24 17:44 Family History: Hypertension G8 MOTHER G8 FATHER Review of Systems Shortness of breath H&P Exam Vital Signs/I&O Vital Sign Date Time Temp Pulse Resp B/P (MAP) Pulse Ox O2 Delivery O2 Flow Rate FiO2 06/06/24 18:40 87 18 100 06/06/24 18:32 Room Air* 0 21 06/06/24 17:45 122/58 06/06/24 16:40 98.1 98.1 Intake and Output 06/05/24 06/06/24 19:00 07:00 Intake Total 250 ml Balance 250 ml Intake Oral 250 ml # Voids 2 Physical Exam Elderly male Mildly in distress due to shortness of breath, Crackles on auscultation With mild cough Regular rate and rhythm Abdomen non firm nondistended Peritoneal dialysis catheter 1+ pitting edema Labs/Diagnostic Data Labs/Diagnostic Data Laboratory Tests Test 06/06/24 05:47 06/05/24 18:09 06/05/24 15:14 06/05/24 13:04 Range/Units White Blood Count 8.5 4.4-10.8 10^3/uL Red Blood Count 2.74 L 4.5-5.90 10^6/uL Hemoglobin 8.8 L 13.5-17.5 g/dL Hematocrit 25.8 #L 41.0-53.0 % Mean Corpuscular Volume 94.0 80.0-100.0 fL Mean Corpuscular Hemoglobin 32.2 H 28.0-32.0 pg Mean Corpuscular Hemoglobin Concent 34.2 32.0-36.0 g/dL Red Cell Distribution Width 16.5 H 11.8-14.3 % Platelet Count 182 140-450 10^3/uL Mean Platelet Volume 7.0 6.9-10.8 fL Neutrophils (%) (Auto) 37.0-80.0 % Lymphocytes (%) (Auto) 10.0-50.0 % Monocytes (%) (Auto) 0.0-12.0 % Basophils (%) (Auto) 0.0-2.0 % Neutrophils # (Auto) 1.6-8.6 10 ^3/uL Lymphocytes # (Auto) 0.4-5.4 10 ^3/uL Monocytes # (Auto) 0-1.3 10 ^3/uL Differential Total Cells Counted 100.0 100 Neutrophils % (Manual) 82 H 37.0-80.0 Band Neutrophils % (Manual) 0 Lymphocytes % (Manual) 9 L 10.0-50.0 Monocytes % (Manual) 9 0-12 Eosinophils % (Manual) 0 0-7 Basophils % (Manual) 0 0.0-2.0 Metamyelocytes % (manual) 0 Myelocytes % (Manual) 0 Promyelocytes % (Manual) 0 Blast Cells % (Manual) 0 Reactive Lymphocytes 0 Platelet Estimate Adequate Sodium Level 129 L 136-145 mmol/L Potassium Level 5.4 H 3.5-5.1 mmol/L Chloride Level 88 L 98-107 mmol/L Carbon Dioxide Level 26 20-31 mmol/L Anion Gap 15 5-15 Blood Urea Nitrogen 88 #*H 9-23 mg/dL Creatinine 12.32 *H 0.700-1.30 mg/dL Glomerular Filtration Rate Calc 4 >90 mL/min BUN/Creatinine Ratio 7.1 L 10.0-20.0 Serum Glucose 237 H 74-106 mg/dL Calcium Level 8.9 8.7-10.4 mg/dL Phosphorus Level 5.2 H 2.4-5.1 mg/dL Total Bilirubin < 0.2 L 0.2-1.0 mg/dL Aspartate Amino Transferase (AST) 21 13-40 U/L Alanine Aminotransferase (ALT) 18 7-40 U/L Alkaline Phosphatase 99 46-116 U/L Total Protein 5.6 L 5.7-8.2 g/dL Albumin 3.5 3.2-4.8 g/dL Random Vancomycin Level 14.4 H 5-10 ug/mL Troponin I High Sensitivity 152 *H 164 *H 190 *H </=54 ng/L Lactic Acid Level 1.6 0.4-2.0 mmol/L Test 06/05/24 12:20 Range/Units White Blood Count 9.8 4.4-10.8 10^3/uL Red Blood Count 3.02 L 4.5-5.90 10^6/uL Hemoglobin 9.7 L 13.5-17.5 g/dL Hematocrit 28.9 L 41.0-53.0 % Mean Corpuscular Volume 95.5 80.0-100.0 fL Mean Corpuscular Hemoglobin 32.0 28.0-32.0 pg Mean Corpuscular Hemoglobin Concent 33.5 32.0-36.0 g/dL Red Cell Distribution Width 17.2 H 11.8-14.3 % Platelet Count 195 140-450 10^3/uL Mean Platelet Volume 7.1 6.9-10.8 fL Neutrophils (%) (Auto) 86.4 H 37.0-80.0 % Lymphocytes (%) (Auto) 4.1 L 10.0-50.0 % Monocytes (%) (Auto) 8.5 0.0-12.0 % Eosinophils (%) (Auto) 0.4 0.0-7.0 % Basophils (%) (Auto) 0.6 0.0-2.0 % Neutrophils # (Auto) 8.5 1.6-8.6 10 ^3/uL Lymphocytes # (Auto) 0.4 0.4-5.4 10 ^3/uL Monocytes # (Auto) 0.8 0-1.3 10 ^3/uL Eosinophils # (Auto) 0 0-0.8 10 ^3/uL Basophils # (Auto) 0.1 0-0.2 10 ^3/uL Nucleated Red Blood Cells 0.3 % Sodium Level 131 L 136-145 mmol/L Potassium Level 5.0 3.5-5.1 mmol/L Chloride Level 92 L 98-107 mmol/L Carbon Dioxide Level 25 20-31 mmol/L Anion Gap 14 5-15 Blood Urea Nitrogen 60 H 9-23 mg/dL Creatinine 11.19 *H 0.700-1.30 mg/dL Glomerular Filtration Rate Calc 5 >90 mL/min BUN/Creatinine Ratio 5.4 L 10.0-20.0 Serum Glucose 257 H 74-106 mg/dL Lactic Acid Level 3.5 *H 0.4-2.0 mmol/L Calcium Level 9.7 8.7-10.4 mg/dL Total Bilirubin < 0.2 L 0.2-1.0 mg/dL Aspartate Amino Transferase (AST) 11 L 13-40 U/L Alanine Aminotransferase (ALT) 18 7-40 U/L Alkaline Phosphatase 119 H 46-116 U/L Troponin I High Sensitivity 187 *H </=54 ng/L B-Type Natriuretic Peptide 378.25 0-100 pg/mL Total Protein 6.6 5.7-8.2 g/dL Albumin 3.9 3.2-4.8 g/dL Assessment End-stage renal disease on peritoneal dialysis Hypertension Hyperkalemia Fluid overload Sepsis secondary to pneumonia Anemia due to chronic kidney disease Hyperphosphatemia Resume home peritoneal dialysis patient brought in cycler we will do five cycles of 2.5% dextrose solution with the last fill of 7.5% solution. Patient is still reports urinary residual volume we will start Bumex IV b.i.d. Epogen Calcium acetate for phosphorus binder Renal diet IV antibiotics for pneumonia as per primary medical team. Fluid restriction Low-salt renal diet Plan discussed with: Patient THANIA CORNEJO MD Jun 06, 2024 19:04
[2024-06-06] MEDS: ACETAMINOPHEN 325 MG TAB PO PRN (20:13)
[2024-06-07] VITALS (17 sets, daily range): BP systolic 124–219; BP diastolic 45–86; PULSE 71–102; RESP 16–20; TEMP 97.3–98.5; O2SAT 96–100
[2024-06-07] MEDS: cloNIDine HCL 0.1 MG TAB PO PRN (01:06)
--- NOTE | 2024-06-07 06:11 | DVH ---
CHEST RADIOGRAPH Indication: fu Technique: Single frontal view of the chest was obtained COMPARISON: XY CHEST PORTABLE on DOS: 06/05/24, XY CHEST PORTABLE on DOS: 06/05/24 FINDINGS: Lines and Tubes: None Lungs: Diffuse interstitial opacities. Pleura: No effusion. No pneumothorax. Cardiomediastinal contours: Unremarkable Bones: No acute osseous abnormality. IMPRESSION: Diffuse interstitial opacities suggestive of pulmonary vascular congestion versus atypical infection.
[2024-06-07 06:36] LABS: Hematocrit 26.4 % (41.0-53.0); Hemoglobin 9.2 g/dL (13.5-17.5); Mean Corpuscular Hemoglobin 32.3 pg (28.0-32.0); Mean Corpuscular Hgb Conc. 34.8 g/dL (32.0-36.0); Platelet Count (auto) 182 10^3/uL (140-450); Red Blood Cells 2.84 10^6/uL (4.5-5.90); Red Cell Distribution Width 16.6 % (11.8-14.3)
[2024-06-07 06:48] LABS: Basophils % (manual) 0 (0.0-2.0); Blast Cells 0; Metamyelocytes % 0; Myelocytes % 0; Promyelocytes % 0; Reactive Lymphocytes 0
[2024-06-07 07:00] LABS: Alanine Aminotransferase 18 U/L (7-40); Albumin 3.6 g/dL (3.2-4.8); Alkaline Phosphatase 99 U/L (46-116); Anion Gap 12 (5-15); BUN/Creatinine Ratio 6.7 (10.0-20.0); Calcium 9.4 mg/dL (8.7-10.4); Carbon Dioxide 26 mmol/L (20-31); Potassium 4.5 mmol/L (3.5-5.1)
[2024-06-07 07:14] LABS: Blood Urea Nitrogen 75 mg/dL (9-23); Chloride 90 mmol/L (98-107); Glucose 282 mg/dL (74-106); Sodium 128 mmol/L (136-145)
[2024-06-07 07:16] LABS: Aspartate Aminotransferase 13 U/L (13-40); Bilirubin, Total < 0.2 mg/dL (0.2-1.0)
[2024-06-07 07:24] LABS: % Iron Saturation 16.2 % (20-55)
[2024-06-07 07:57] LABS: Band Neutrophils % (manual) 1; Eosinophils % (manual) 4 (0-7); Lymphocytes % (manual) 9 (10.0-50.0); Monocytes % (manual) 8 (0-12)
[2024-06-07 07:58] LABS: Platelet Estimate Adequate
[2024-06-07] MEDS: cefTRIAXone 1GM/50ML D5W 50 ML IV SCH (09:07)
[2024-06-07] MEDS: hydrALAZINE HCL 20 MG/ML VL IV ONE (09:58)
[2024-06-07 10:12] LABS: Urine Bacteria None Seen /hpf (None Seen)
[2024-06-07 10:46] LABS: Urine Blood TRACE /uL (Negative); Urine Clarity Clear (Clear); Urine Color Light-Yellow (Yellow); Urine Protein, UAD 2+ (Negative); Urine Specific Gravity 1.013 (1.001-1.035); Urine Urobilinogen Normal (Negative); Urine WBC 7 /hpf (0 - 3)
[2024-06-07] MEDS: AZITHROMYCIN 500MG/ 250ML 250 ML IV SCH (11:28)
[2024-06-07] MEDS ORDERED: hydrALAZINE HCL 20 MG/ML VL IV ONE (12:00)
--- NOTE | 2024-06-07 12:59 | DVHPN2 ---
Consult Progress Note Subjective Patient reports: Feels better Review of Systems: CVS:Normal (Denies chest pain), RESPIRATORY:Abnormal (Shortness of breath improving, cough resolving), NEURO:Normal (A&O x4) Objective vital signs Vital Sign Date Time Temp Pulse Resp B/P (MAP) Pulse Ox O2 Delivery O2 Flow Rate FiO2 06/07/24 12:25 73 18 100 06/07/24 12:19 Nasal Cannula 2.0 06/07/24 12:19 28 06/07/24 11:28 195/76 06/07/24 09:00 97.3 97.3 Total Intake and Output 06/06/24 06/06/24 06/07/24 15:00 23:00 07:00 Intake Total 1000 ml 300 ml Output Total 300 ml Balance 700 ml 300 ml medications Current Medications Medications Dose Ordered Sig/Curt Route Start Time Stop Time Status Last Admin Dose Admin Atorvastatin Calcium 40 mg HS PO 06/05/24 22:00 06/06/24 22:05 40 MG Carvedilol 6.25 mg Q12HR PO 06/05/24 22:00 06/07/24 11:28 6.25 MG Morphine Sulfate 2 mg Q30MP PRN IV 06/05/24 16:30 Acetaminophen 650 mg Q6HP PRN PO 06/05/24 16:30 06/07/24 04:44 650 MG Zolpidem Tartrate 5 mg QHSP PRN PO 06/05/24 16:30 Lorazepam 0.5 mg Q6HP PRN PO 06/05/24 16:30 Docusate Sodium 100 mg DAILY PO 06/06/24 10:00 06/07/24 11:29 100 MG Nitroglycerin 0.4 mg Q5MINP PRN SL 06/05/24 16:30 Ondansetron HCl 4 mg Q4HP PRN IV 06/05/24 16:30 Al Hydrox/Mg Hydrox/Simethicone 30 ml Q6HPRN PRN PO 06/05/24 16:30 Lisinopril 10 mg DAILY PO 06/06/24 10:00 06/06/24 10:09 10 MG Piperacillin Sod/ Tazobactam Sod 100 ml @ 100 mls/hr Q8HR IV 06/05/24 22:00 UNV Clonidine HCl 0.2 mg Q6HP PRN PO 06/05/24 23:15 06/07/24 09:38 0.2 MG Ceftriaxone Sodium 50 ml @ 100 mls/hr DAILY@09 IV 06/07/24 09:00 06/07/24 09:07 100 MLS/HR Azithromycin 250 ml @ 125 mls/hr DAILY IV 06/07/24 10:00 06/07/24 11:28 125 MLS/HR Albuterol 2.5 mg Q2HPRN PRN NEB 06/06/24 13:45 Albuterol 2.5 mg Q6HR NEB 06/06/24 18:00 06/07/24 12:19 2.5 MG Ipratropium [place] 0.5 mg Q6HR NEB 06/06/24 18:00 06/07/24 12:19 0.5 MG Bumetanide 2.5 mg BIDD IV 06/06/24 14:30 06/07/24 05:53 2.5 MG Epoetin Pito-epbx 10,000 unit TUTHSA SC 06/06/24 14:30 06/06/24 17:10 10,000 UNIT Peritoneal Dialysis Solution 2,000 ml @ 0 mls/hr Q4HR IP 06/06/24 18:00 06/07/24 06:01 0 MLS/HR Mupirocin 1 applic DAILY TOP 06/06/24 14:45 06/07/24 11:29 1 APPLIC Calcium Acetate 1,334 mg TIDWMEALS PO 06/06/24 18:00 06/07/24 08:20 1,334 MG Examination: LUNGS:Abnormal (Rhonchi/crackles) laboratory and microbiology Laboratory Tests 06/07/24 05:36 Test 06/07/24 05:36 Range/Units Serum Glucose 282 H 74-106 mg/dL Problem List/Assessment/Plan Problem List/Assessment/Plan Assessment NSTEMI likely type 2 Lactic acidosis Acute on chronic HFpEF Pneumonia? ESRD on PD HLD Uncontrolled HTN Plan/Recommendation * Troponins stable, continue home dose aspirin (Known allergies to NSAIDS Tolerates Aspirin) and statin. * Follow-up echo * Bumex 2 mg IV x1, monitor response. Follow-up nephrology recs. * PD per Nephrology * Empiric antibiotics. * Continue on carvedilol and lisinopril, titrate as tolerated. May restart on home dose amlodipine 5 mg daily. Case Discussed with Dr Juarez. Troponins downtrending. Continues to deny chest pain. Likely demand ischemia. EKG negative for significant ST abnormality. Continue medical management at this time, follow up echo. Continue blood pressure medication and trending. Follow-up nephrology recs for diuresis and continued PD. Breathing and cough have improved overnight. Blood pressure remains elevated, medication titrated Coreg at 12.5 mg p.o. twice daily, lisinopril 20 mg p.o. daily. Nifedipine 30 mg p.o. daily added. Continue trending. Thank you for allowing me to participate in the management of this patient. The treatment plan was discussed with and agreed upon by patient/family including requesting consultants and ordering of imaging/procedures. Critical care, time spent: 36 minutes Plan discussed with: Patient Date of Service: Jun 07, 2024 Billing Provider: MALISSA RIVERA Common Visit Codes: [id number] INP/OBS CARE(HIGH), [id number] CARE 30-74 MIN MALISSA RIVERA Jun 07, 2024 12:59
[2024-06-07] MEDS ORDERED: CARVEDILOL 12.5 MG TAB PO ONE (13:00)
[2024-06-07] MEDS ORDERED: LISINOPRIL 5 MG TAB PO ONE (13:00)
--- NOTE | 2024-06-07 13:57 | DVHPN2 ---
Progress Note Date Seen: Jun 07, 2024 Medical Necessity Reason Pt with a Central, PICC or Fol: No Subjective Patient reports: Feels better Objective vital signs Vital Sign Date Time Temp Pulse Resp B/P (MAP) Pulse Ox O2 Delivery O2 Flow Rate FiO2 06/07/24 12:25 73 18 100 06/07/24 12:19 Nasal Cannula 2.0 06/07/24 12:19 28 06/07/24 11:28 195/76 06/07/24 09:00 97.3 97.3 Total Intake and Output 06/06/24 06/06/24 06/07/24 15:00 23:00 07:00 Intake Total 1000 ml 300 ml Output Total 300 ml Balance 700 ml 300 ml medications Current Medications Medications Dose Ordered Sig/Curt Route Start Time Stop Time Status Last Admin Dose Admin Atorvastatin Calcium 40 mg HS PO 06/05/24 22:00 06/06/24 22:05 40 MG Morphine Sulfate 2 mg Q30MP PRN IV 06/05/24 16:30 Acetaminophen 650 mg Q6HP PRN PO 06/05/24 16:30 06/07/24 04:44 650 MG Zolpidem Tartrate 5 mg QHSP PRN PO 06/05/24 16:30 Lorazepam 0.5 mg Q6HP PRN PO 06/05/24 16:30 Docusate Sodium 100 mg DAILY PO 06/06/24 10:00 06/07/24 11:29 100 MG Nitroglycerin 0.4 mg Q5MINP PRN SL 06/05/24 16:30 Ondansetron HCl 4 mg Q4HP PRN IV 06/05/24 16:30 Al Hydrox/Mg Hydrox/Simethicone 30 ml Q6HPRN PRN PO 06/05/24 16:30 Piperacillin Sod/ Tazobactam Sod 100 ml @ 100 mls/hr Q8HR IV 06/05/24 22:00 UNV Clonidine HCl 0.2 mg Q6HP PRN PO 06/05/24 23:15 06/07/24 09:38 0.2 MG Ceftriaxone Sodium 50 ml @ 100 mls/hr DAILY@09 IV 06/07/24 09:00 06/07/24 09:07 100 MLS/HR Azithromycin 250 ml @ 125 mls/hr DAILY IV 06/07/24 10:00 06/07/24 11:28 125 MLS/HR Albuterol 2.5 mg Q2HPRN PRN NEB 06/06/24 13:45 Albuterol 2.5 mg Q6HR NEB 06/06/24 18:00 06/07/24 12:19 2.5 MG Ipratropium [place] 0.5 mg Q6HR NEB 06/06/24 18:00 06/07/24 12:19 0.5 MG Bumetanide 2.5 mg BIDD IV 06/06/24 14:30 06/07/24 05:53 2.5 MG Epoetin Pito-epbx 10,000 unit TUTHSA SC 06/06/24 14:30 06/06/24 17:10 10,000 UNIT Mupirocin 1 applic DAILY TOP 06/06/24 14:45 06/07/24 11:29 1 APPLIC Calcium Acetate 1,334 mg TIDWMEALS PO 06/06/24 18:00 06/07/24 12:34 1,334 MG Carvedilol 12.5 mg Q12HR PO 06/07/24 22:00 Nifedipine 30 mg DAILY PO 06/08/24 10:00 Lisinopril 20 mg DAILY PO 06/08/24 10:00 Examination: LUNGS:Abnormal, ABDOMEN:Abnormal laboratory and microbiology Laboratory Tests 06/07/24 05:36 Test 06/07/24 05:36 Range/Units Serum Glucose 282 H 74-106 mg/dL Problem List/Assessment/Plan Problem List/Assessment/Plan End-stage renal disease on peritoneal dialysis Hypertension Hyperkalemia Fluid overload Sepsis secondary to pneumonia Anemia due to chronic kidney disease Hyperphosphatemia Patient brought in home supply we will continue nightly peritoneal dialysis treatment 2.5% dextrose five cycles with one bag last fill w/ dextran 7.5% Patient is still reports urinary residual volume we will start Bumex IV b.i.d. Epogen 3x a week Calcium acetate for phosphorus binder Renal diet IV antibiotics for pneumonia as per primary medical team. Fluid restriction Low-salt renal diet increase BP meds , lisinopril, Coreg, hydralazine Plan discussed with: Patient My Orders My Orders Orders - THANIA CORNEJO MD Procedure Category Date Status Time Cardiac DIET 06/06/24 Transmitted Diet-2gna,Lofat,Lochol Dinner Maintain Fluid ROCÍO 06/06/24 In Process Restrictions 14:24 Bumetanide Injection PHA 06/06/24 In Process (Bumex Injection) 14:30 Epoetin Pito-Epbx PHA 06/06/24 In Process (Retacrit) 14:30 Document Fluid Input ROCÍO 06/06/24 In Process And Outpu 14:42 Mupirocin 2% Ointment PHA 06/06/24 In Process (Bactroban 2% Oint 14:45 Calcium Acetate PHA 06/06/24 In Process Capsule (Phoslo 18:00 Basic Metabolic Panel LAB 06/08/24 Verified 04:00 THANIA CORNEJO MD Jun 07, 2024 13:57
--- NOTE | 2024-06-07 14:49 | DVHPN2 ---
Subjective Complains of some muscle aches and muscle tensions Very high blood pressure this morning. Some shortness of breath. Reviewed: Care Plan, H&P, Labs, Medications, Previous Orders, Radiology, Other (Consultants) Changes from previous H/P or p: No Changes Respiratory: Shortness of breath Objective Vitals Vital Signs Date Time Temp Pulse Resp B/P (MAP) Pulse Ox O2 Delivery O2 Flow Rate FiO2 06/07/24 13:55 102 147/67 (93) 06/07/24 12:25 18 100 06/07/24 12:19 Nasal Cannula 2.0 06/07/24 12:19 28 06/07/24 09:00 97.3 97.3 Intake/Output Intake and Output 06/07/24 07:00 Intake Total 1300 ml Output Total 300 ml Balance 1000 ml Intake Oral 1300 ml Output Urine Total 300 ml # Bowel Movements 1 General Appearance: Alert, Oriented X3, Cooperative, mild distress HEENT: Atraumatic Lungs: Other (Crackles bilateral lungs with few rhonchi) Cardiovascular: Regular rate Abdomen: Normal bowel sounds, Soft, No tenderness Extremities: Other (1+ bilateral lower extremity edema) Medications Current Medications Medications Dose Ordered Sig/Curt Route Start Time Stop Time Status Last Admin Dose Admin Atorvastatin Calcium 40 mg HS PO 06/05/24 22:00 06/06/24 22:05 40 MG Morphine Sulfate 2 mg Q30MP PRN IV 06/05/24 16:30 Acetaminophen 650 mg Q6HP PRN PO 06/05/24 16:30 06/07/24 04:44 650 MG Zolpidem Tartrate 5 mg QHSP PRN PO 06/05/24 16:30 Lorazepam 0.5 mg Q6HP PRN PO 06/05/24 16:30 Docusate Sodium 100 mg DAILY PO 06/06/24 10:00 06/07/24 11:29 100 MG Nitroglycerin 0.4 mg Q5MINP PRN SL 06/05/24 16:30 Ondansetron HCl 4 mg Q4HP PRN IV 06/05/24 16:30 Al Hydrox/Mg Hydrox/Simethicone 30 ml Q6HPRN PRN PO 06/05/24 16:30 Piperacillin Sod/ Tazobactam Sod 100 ml @ 100 mls/hr Q8HR IV 06/05/24 22:00 UNV Clonidine HCl 0.2 mg Q6HP PRN PO 06/05/24 23:15 06/07/24 09:38 0.2 MG Ceftriaxone Sodium 50 ml @ 100 mls/hr DAILY@09 IV 06/07/24 09:00 06/07/24 09:07 100 MLS/HR Azithromycin 250 ml @ 125 mls/hr DAILY IV 06/07/24 10:00 06/07/24 11:28 125 MLS/HR Albuterol 2.5 mg Q2HPRN PRN NEB 06/06/24 13:45 Albuterol 2.5 mg Q6HR NEB 06/06/24 18:00 06/07/24 12:19 2.5 MG Ipratropium [place] 0.5 mg Q6HR NEB 06/06/24 18:00 06/07/24 12:19 0.5 MG Bumetanide 2.5 mg BIDD IV 06/06/24 14:30 06/07/24 05:53 2.5 MG Epoetin Pito-epbx 10,000 unit TUTHSA SC 06/06/24 14:30 06/06/24 17:10 10,000 UNIT Calcium Acetate 1,334 mg TIDWMEALS PO 06/06/24 18:00 06/07/24 12:34 1,334 MG Carvedilol 12.5 mg Q12HR PO 06/07/24 22:00 Nifedipine 30 mg DAILY PO 06/08/24 10:00 Lisinopril 20 mg DAILY PO 06/08/24 10:00 Laboratory Results Laboratory Tests 06/07/24 05:36 Chemistry Test 06/07/24 05:36 Albumin 3.6 g/dL (3.2-4.8) Calcium Level 9.4 mg/dL (8.7-10.4) Total Protein 6.0 g/dL (5.7-8.2) Cardiac Markers Test 06/07/24 05:36 B-Type Natriuretic Peptide 789.70 pg/mL (0-100) LFT Test 06/07/24 05:36 Alanine Aminotransferase (ALT) 18 U/L (7-40) Alkaline Phosphatase 99 U/L (46-116) Aspartate Amino Transferase (AST) 13 U/L (13-40) Total Bilirubin < 0.2 mg/dL (0.2-1.0) L Urinalysis Test 06/07/24 09:45 Urine Color Light-yellow (Yellow) Urine Clarity Clear (Clear) Urine pH 7.0 (5.0-9.0) Urine Specific [place] 1.013 (1.001-1.035) Urine Protein 2+ (Negative) H Urine Ketones Negative (Negative) Urine Blood Trace /uL (Negative) H Urine Nitrite Negative (Negative) Urine Bilirubin Negative (Negative) Urine Urobilinogen Normal mg/dL (Negative) Urine Leukocyte Esterase 1+ /uL (Negative) Urine RBC 2 /hpf (0 - 3) Urine WBC 7 /hpf (0 - 3) Urine Squamous Epithelial Cells Few /hpf (<5) Urine Bacteria None seen /hpf (None Seen) Urine Glucose 4+ mg/dL (Normal) H Assessment/Plan Assessment/Plan Hypertensive urgency Myalgia possibly secondary to statins Acute on chronic heart failure COPD exacerbation and possible pneumonia Non-STEMI Sleep apnea Hypertension Dyslipidemia End-stage renal disease on peritoneal dialysis Coronary artery disease TIA Liver cirrhosis Plan: Blood pressure medications to get it under control. Stop atorvastatin and check CPK. Still unstable for transfer at this time. Possible home tomorrow if stable Further plan per orders Plan discussed with: Patient, Spouse My Orders Orders - KAITLYN ALBERTO MD Procedure Category Date Status Time Creatine Kinase LAB 06/07/24 Verified 14:46 Date of Service: Jun 07, 2024 Billing Provider: KAITLYN ALBERTO MD Common Visit Codes: [id number] INP/OBS CARE(HIGH) KAITLYN ALBERTO MD Jun 07, 2024 14:49
[2024-06-07] MEDS: NIFEdipine ER 30 MG TAB PO ONE (15:23)
[2024-06-07] MEDS: CARVEDILOL 3.125 MG TAB PO ONE (15:24)
[2024-06-07] MEDS ORDERED: GUAI600T78 PO (19:15)
[2024-06-07] MEDS ORDERED: TERA5CAP42 PO (19:15)
[2024-06-07] MEDS ORDERED: METO25TA5 PO (19:15)
[2024-06-07] MEDS ORDERED: AZIT-43 PO (19:15)
[2024-06-07] MEDS ORDERED: ATOR20TA PO (19:15)
[2024-06-07] MEDS ORDERED: CEFU250T68 PO (19:15)
[2024-06-07] MEDS ORDERED: NUTR-345 OR (19:15)
[2024-06-07] MEDS ORDERED: DOCU-94 PO (19:15)
[2024-06-07] MEDS ORDERED: CALC667C PO (19:15)
[2024-06-07] MEDS ORDERED: INSUINJ2 SC (19:15)
[2024-06-07] MEDS ORDERED: ALBU108A5 IN (19:15)
[2024-06-07] MEDS ORDERED: [UNRECOGNIZED DRUG - CODE] PO (19:15)
[2024-06-07] MEDS ORDERED: INSREG3 SC (19:15)
[2024-06-07] MEDS: CARVEDILOL 12.5 MG TAB PO SCH (22:00)
[2024-06-08] VITALS (17 sets, daily range): BP systolic 140–185; BP diastolic 62–80; PULSE 69–74; RESP 14–21; TEMP 97.8–98.9; O2SAT 91–100
[2024-06-08 05:58] LABS: Potassium 4.6 mmol/L (3.5-5.1)
[2024-06-08 06:00] LABS: Calcium 9.4 mg/dL (8.7-10.4)
[2024-06-08 06:05] LABS: BUN/Creatinine Ratio 6.4 (10.0-20.0)
--- NOTE | 2024-06-08 06:05 | DVHSR ---
APPROVED REPORT EXAM: Two-dimensional and M-mode echocardiogram with Doppler and color Doppler. Blood Pressure: 149/52 mmHg INDICATION Positive Troponin RISK FACTORS Height: 5' 10", Weight: 231 DIMENSIONS LVDd4.9 (3.8-5.7cm)LA (2D)3.8 (1.9-4.0cm)Aortic Root3.4 (2.0-3.7cm) LVDs3.8 (2.5-4.0cm)LA (MM) (1.9-4.0cm)Aortic Cusp Exc2.0 (1.5-2.0cm) EF (%) 55.0 (55-70%)Rt. Atrium4.0 (1.9-4.0cm)Asc. Aorta cm IVSd1.1 (0.7-1.1cm)RV (D) (1.8-2.4cm) PWd1.1 (0.7-1.1cm) Mitral Valve MitralMitral Stenosis E wave1.40m/sMV Mean GR.5mmHg A wave1.70m/sMV Peak GR.11mmHg E/A ratio0.82D MVAcm2 DECEL [id number] 1/2 Easu85yr IVRTmsDop MVA3.02cm2 Aortic Valve Aortic ValveAortic Stenosis V11.10m/Yulisa Mean GR.6mmHg V21.70m/Yulisa Peak GR.12mmHg LVOT Diameter2.4 (1.8-2.4cm)Doppler AVA2.93cm2 Pulmonic Valve V21.00m/s Tricuspid Valve TR Velocity3.20m/s [id number] Conclusion lvef 55- 60% by visual estimate normal RV function, RV enlarged biatrial enlarged mild moderate mitral stenosis, mean gradient of 5 mmgh severe MAC noted mild to moderate mitral regurg
[2024-06-08 06:14] LABS: Blood Urea Nitrogen 69 mg/dL (9-23); Chloride 89 mmol/L (98-107); Glucose 368 mg/dL (74-106); Sodium 127 mmol/L (136-145)
[2024-06-08 07:08] LABS: Anion Gap 11 (5-15); Carbon Dioxide 27 mmol/L (20-31)
[2024-06-08] MEDS: NIFEdipine ER 30 MG TAB PO SCH (10:24)
[2024-06-08] MEDS: LISINOPRIL 20 MG TAB PO SCH (10:26)
--- NOTE | 2024-06-08 10:49 | DVHDS2 ---
Discharge Summary Date of Admission Jun 05, 2024 at 16:26 Date of Discharge: Jun 08, 2024 Labs/Diagnostic Data: Laboratory Results Test 06/08/24 05:34 06/07/24 09:45 06/07/24 05:36 06/06/24 05:47 Sodium Level 127 mmol/L (136-145) Potassium Level 4.6 mmol/L (3.5-5.1) Chloride Level 89 mmol/L (98-107) Carbon Dioxide Level 27 mmol/L (20-31) Anion Gap 11 (5-15) Blood Urea Nitrogen 69 mg/dL (9-23) Creatinine 10.71 mg/dL (0.700-1.30) Glomerular Filtration Rate Calc 5 mL/min (>90) BUN/Creatinine Ratio 6.4 (10.0-20.0) Serum Glucose 368 mg/dL (74-106) Calcium Level 9.4 mg/dL (8.7-10.4) Urine Color Light-yellow (Yellow) Urine Clarity Clear (Clear) Urine pH 7.0 (5.0-9.0) Urine Specific [place] 1.013 (1.001-1.035) Urine Protein 2+ (Negative) Urine Ketones Negative (Negative) Urine Blood Trace /uL (Negative) Urine Nitrite Negative (Negative) Urine Bilirubin Negative (Negative) Urine Urobilinogen Normal mg/dL (Negative) Urine Leukocyte Esterase 1+ /uL (Negative) Urine RBC 2 /hpf (0 - 3) Urine WBC 7 /hpf (0 - 3) Urine Squamous Epithelial Cells Few /hpf (<5) Urine Bacteria None seen /hpf (None Seen) Urine Glucose 4+ mg/dL (Normal) White Blood Count 8.0 10^3/uL (4.4-10.8) Red Blood Count 2.84 10^6/uL (4.5-5.90) Hemoglobin 9.2 g/dL (13.5-17.5) Hematocrit 26.4 % (41.0-53.0) Mean Corpuscular Volume 93.0 fL (80.0-100.0) Mean Corpuscular Hemoglobin 32.3 pg (28.0-32.0) Mean Corpuscular Hemoglobin Concent 34.8 g/dL (32.0-36.0) Red Cell Distribution Width 16.6 % (11.8-14.3) Platelet Count 182 10^3/uL (140-450) Mean Platelet Volume 6.8 fL (6.9-10.8) Neutrophils (%) (Auto) % (37.0-80.0) Lymphocytes (%) (Auto) % (10.0-50.0) Monocytes (%) (Auto) % (0.0-12.0) Basophils (%) (Auto) % (0.0-2.0) Neutrophils # (Auto) 10 ^3/uL (1.6-8.6) Lymphocytes # (Auto) 10 ^3/uL (0.4-5.4) Monocytes # (Auto) 10 ^3/uL (0-1.3) Differential Total Cells Counted 100.0 (100) Neutrophils % (Manual) 78 (37.0-80.0) Band Neutrophils % (Manual) 1 Lymphocytes % (Manual) 9 (10.0-50.0) Monocytes % (Manual) 8 (0-12) Eosinophils % (Manual) 4 (0-7) Basophils % (Manual) 0 (0.0-2.0) Metamyelocytes % (manual) 0 Myelocytes % (Manual) 0 Promyelocytes % (Manual) 0 Blast Cells % (Manual) 0 Reactive Lymphocytes 0 Platelet Estimate Adequate Iron Level 38 ug/dL (65-175) Total Iron Binding Capacity 234 ug/dL (250-425) Percent Iron Saturation 16.2 % (20-55) Ferritin 118.1 ng/mL (22-322) Total Bilirubin < 0.2 mg/dL (0.2-1.0) Aspartate Amino Transferase (AST) 13 U/L (13-40) Alanine Aminotransferase (ALT) 18 U/L (7-40) Alkaline Phosphatase 99 U/L (46-116) Creatine Kinase 182 U/L (46-171) Troponin I High Sensitivity 94 ng/L (</=54) B-Type Natriuretic Peptide 789.70 pg/mL (0-100) Total Protein 6.0 g/dL (5.7-8.2) Albumin 3.6 g/dL (3.2-4.8) Phosphorus Level 5.2 mg/dL (2.4-5.1) Random Vancomycin Level 14.4 ug/mL (5-10) Test 06/05/24 15:14 06/05/24 12:20 Lactic Acid Level 1.6 mmol/L (0.4-2.0) Eosinophils (%) (Auto) 0.4 % (0.0-7.0) Eosinophils # (Auto) 0 10 ^3/uL (0-0.8) Basophils # (Auto) 0.1 10 ^3/uL (0-0.2) Nucleated Red Blood Cells 0.3 % Other Laboratory Tests 06/08/24 05:34 06/07/24 05:36 Brief Hx & Hospital Course: see dictated note Condition at Discharge: Fair Final Diagnosis/Problems List chf Discharge Disposition: Acute Care Facility Discharge Instruct/Medications Diet: Renal Activity: No Restrictions, As Tolerated Follow Up/Referral: fu with sims Medications: per aug Discharge Statement: "Patient was advised to return to the ER or call 911 if any headaches, dizziness, shortness of breath, chest pain, abdominal pain, bleeding, fevers, or worsening of medical condition. Patient was counseled about treatment plan, medications, possible side effects, patientverbalized understanding. All questions were answered to the best of my ability. This discharge took greater then 30 minutes in planning, reviewing documentation, counseling the patient, and discussing with other team members." ASSESSMENT ASSESSMENT Assessment chf Date of Service: Jun 08, 2024 Billing Provider: MESHA ARIAS MD Common Visit Codes: [id number] DISCH DAY >30min Secondary Visit Codes: [id number] CARE PLAN 30 MINUTES MESHA ARIAS MD Jun 08, 2024 10:49
[2024-06-08] MEDS ORDERED: DEXTROSE (50%) 50ML SYRG IV PRN (11:00)
--- NOTE | 2024-06-08 11:05 | DVHDS ---
DATE OF DISCHARGE: 06/08/2024 Date of transfer to [facility] 06/08/2024. HISTORY OF PRESENT ILLNESS: The patient is a 68-year-old gentleman who was admitted with complaints of shortness of breath and cough and was initially diagnosed as pneumonia. The patient has a history of hypertension, hyperlipidemia, diabetes, end-stage renal disease on peritoneal dialysis, liver cirrhosis, TIA and CHF as well as COPD. HOSPITAL COURSE: The patient had a chest x-ray that showed evidence of pulmonary vascular congestion. The patient was also treated with antibiotics. His blood pressure was elevated up to 204/86. The patient's BNP was 378. Troponin levels were mildly elevated up to 187. He was seen in Nephrology consult by Dr. Khanna. Echocardiogram done showed ejection fraction of 55-60% with moderate mitral stenosis. The patient is now being transferred to [facility] for further management. FINAL DIAGNOSES: Therefore, * Acute on chronic diastolic heart failure. * Likely hypertensive urgency. * Chronic obstructive pulmonary disease exacerbation. * Possible pneumonia. * Non-ST elevation myocardial infarction, questionably type 2. * Sleep apnea. * Hyperlipidemia. * Diabetes mellitus. * End-stage renal disease, on peritoneal dialysis. * Liver cirrhosis. * History of transient ischemic attack. * Obesity. * Hyponatremia. ADVANCE CARE PLANNING: The patient is a full code. Time spent was 19 minutes. Time spent in discharge planning including paperwork was 39 minutes. MD HELLEN Calvert/ROMEL TID: [id number] RECEIPT: [id number]
--- NOTE | 2024-06-08 11:26 | ECG ---
[facility] Test Date: 2024-06-05 Test Time: 14:56:10 Pat Name: TREVOR SHELDON Department: ED Room: 0209T A Gender: M Patient Access Associate: JENAE : 1955 Requested By: BAN ESCALONA Order Number: [id number] Reading MD: Perry Ward Measurements Intervals [place] Rate: 83 P: 78 SC: 231 QRS: -13 QRSD: 93 T: 43 QT: 397 QTc: 467 Interpretive Statements Sinus rhythm Prolonged SC interval LVH by voltage Minimal ST elevation, inferior leads Electronically Signed On 06-12-2024 9:47:08 PST by Perry Ward Please click the below link to view image of tracing.
[2024-06-08] MEDS: ACCU-CHEK COMFORT CURVE STRIP VI SCH (11:57)
[2024-06-08] MEDS: InsuLIN REG 1unit/0.01ml Soln (100units/ml) SC SCH (12:02)
--- NOTE | 2024-06-08 12:30 | DVHPN2 ---
Progress Note Date Seen: Jun 08, 2024 Medical Necessity Reason Pt with a Central, PICC or Fol: No Subjective Patient reports: No new complaints Other Systems: Patient seen and examined by myself today in follow-up, patient examined protein dialysis, PD fluid is clear Objective vital signs Vital Sign Date Time Temp Pulse Resp B/P (MAP) Pulse Ox O2 Delivery O2 Flow Rate FiO2 06/08/24 12:12 70 14 100 06/08/24 10:26 154/63 06/08/24 09:33 98.3 98.3 06/08/24 06:01 Nasal Cannula* 2 28 Total Intake and Output 06/07/24 06/07/24 06/08/24 15:00 23:00 07:00 Intake Total 300 ml 1020 ml 105 ml Output Total 455 ml 100 ml Balance 300 ml 565 ml 5 ml medications Current Medications Medications Dose Ordered Sig/Curt Route Start Time Stop Time Status Last Admin Dose Admin Morphine Sulfate 2 mg Q30MP PRN IV 06/05/24 16:30 Acetaminophen 650 mg Q6HP PRN PO 06/05/24 16:30 06/08/24 08:48 650 MG Zolpidem Tartrate 5 mg QHSP PRN PO 06/05/24 16:30 Lorazepam 0.5 mg Q6HP PRN PO 06/05/24 16:30 Docusate Sodium 100 mg DAILY PO 06/06/24 10:00 06/08/24 10:23 100 MG Nitroglycerin 0.4 mg Q5MINP PRN SL 06/05/24 16:30 Ondansetron HCl 4 mg Q4HP PRN IV 06/05/24 16:30 Al Hydrox/Mg Hydrox/Simethicone 30 ml Q6HPRN PRN PO 06/05/24 16:30 Piperacillin Sod/ Tazobactam Sod 100 ml @ 100 mls/hr Q8HR IV 06/05/24 22:00 UNV Clonidine HCl 0.2 mg Q6HP PRN PO 06/05/24 23:15 06/07/24 16:54 0.2 MG Ceftriaxone Sodium 50 ml @ 100 mls/hr DAILY@09 IV 06/07/24 09:00 06/08/24 08:48 100 MLS/HR Azithromycin 250 ml @ 125 mls/hr DAILY IV 06/07/24 10:00 06/08/24 10:22 125 MLS/HR Albuterol 2.5 mg Q2HPRN PRN NEB 06/06/24 13:45 Albuterol 2.5 mg Q6HR NEB 06/06/24 18:00 06/08/24 12:04 2.5 MG Ipratropium [place] 0.5 mg Q6HR NEB 06/06/24 18:00 06/08/24 12:04 0.5 MG Epoetin Pito-epbx 10,000 unit TUTHSA SC 06/06/24 14:30 06/06/24 17:10 10,000 UNIT Calcium Acetate 1,334 mg TIDWMEALS PO 06/06/24 18:00 06/08/24 11:57 1,334 MG Carvedilol 12.5 mg Q12HR PO 06/07/24 22:00 06/08/24 10:25 12.5 MG Nifedipine 30 mg DAILY PO 06/08/24 10:00 06/08/24 10:24 30 MG Terazosin HCl 5 mg HS PO 06/08/24 22:00 Diagnostic Test (Pha) 1 strip ACHS 06/08/24 11:30 06/08/24 11:57 1 STRIP Insulin Human Regular HS SC 06/08/24 22:00 Insulin Human Regular AC SC 06/08/24 11:30 06/08/24 12:02 9 UNITS Dextrose 50 ml UD PRN IV 06/08/24 11:00 Examination: LUNGS:Normal, CVS:Normal, MSK:Normal laboratory and microbiology Laboratory Tests 06/08/24 05:34 06/07/24 05:36 Test 06/08/24 05:34 Range/Units Serum Glucose 368 H 74-106 mg/dL Problem List/Assessment/Plan Problem List/Assessment/Plan End-stage renal disease on peritoneal dialysis Hypertension Hyperkalemia Fluid overload Sepsis secondary to pneumonia Anemia due to chronic kidney disease Hyponatremia due to excess H2O Recommendations Continue with protein dialysis using patient has cycler on home supplies Use 2.5% dextrose solution and extranodal Discontinue 1.5% dextrose solution Fluid restrictions Renal diet We will continue to follow Plan discussed with: Patient My Orders My Orders Orders - ELIANA HINOJOSA MD Procedure Category Date Status Time Maintain Fluid ROCÍO 06/08/24 In Process Restrictions 10:33 ELIANA HINOJOSA MD Jun 08, 2024 12:30
[2024-06-08] MEDS ORDERED: InsuLIN REG 1unit/0.01ml Soln (100units/ml) SC SCH (22:00)
[2024-06-08] MEDS ORDERED: TERAZOSIN HCL 5 MG CAP PO SCH (22:00)
--- NOTE | 2024-06-09 07:40 | ECG ---
[facility] Test Date: 2024-06-05 Test Time: 14:55:36 Pat Name: TREVOR SHELDON Department: ED Room: 0209T A Gender: M Furniture Designer: JENAE : 1955 Requested By: LIZANDRO PERDOMO Order Number: [id number] Reading MD: Perry Ward Measurements Intervals [place] Rate: 84 P: 0 PA: 0 QRS: -15 QRSD: 98 T: 42 QT: 412 QTc: 488 Interpretive Statements Atrial flutter with predominant 3:1 AV block Borderline left axis deviation Borderline prolonged QT interval Electronically Signed On 06-12-2024 9:47:06 PST by Perry Ward Please click the below link to view image of tracing.
== END 2024-06-08 21:10 | disposition short-term general hospital (02) | DRG 280 ==
LOC: EDBD 11:42 → ER 11:42 → TELE 16:26 → TELE-CENTR 23:26
PROVIDERS: ADMIT Hospitalist; ATTEND Internal Medicine
DX: I13.2 Hypertensive heart and chronic kidney disease with heart failure and with stage 5 chronic kidney disease, or end stage renal disease (principal); I50.33 Acute on chronic diastolic (congestive) heart failure; I21.A1 Myocardial infarction type 2; J15.69 Pneumonia due to other Gram-negative bacteria; N18.6 End stage renal disease; J15.9 Unspecified bacterial pneumonia; E87.20 Acidosis, unspecified; J44.0 Chronic obstructive pulmonary disease with (acute) lower respiratory infection; J44.1 Chronic obstructive pulmonary disease with (acute) exacerbation; E87.1 Hypo-osmolality and hyponatremia; D63.1 Anemia in chronic kidney disease; E78.5 Hyperlipidemia, unspecified; G47.30 Sleep apnea, unspecified; K74.60 Unspecified cirrhosis of liver; E87.5 Hyperkalemia; I25.10 Atherosclerotic heart disease of native coronary artery without angina pectoris; E83.39 Other disorders of phosphorus metabolism; E11.22 Type 2 diabetes mellitus with diabetic chronic kidney disease; I16.0 Hypertensive urgency; I05.0 Rheumatic mitral stenosis; E66.9 Obesity, unspecified; Z86.73 Personal history of transient ischemic attack (TIA), and cerebral infarction without residual deficits; Z88.6 Allergy status to analgesic agent; Z82.49 Family history of ischemic heart disease and other diseases of the circulatory system; Z79.82 Long term (current) use of aspirin; Z79.899 Other long term (current) drug therapy; Z99.2 Dependence on renal dialysis; Z68.32 Body mass index [BMI] 32.0-32.9, adult
CPT/HCPCS: 36415; 71045; 80048; 80053; 80202; 81001; 82550; 82728; 82962; 83540; 83550; 83605; 83880; 84100; 84484; 85007; 85025; 85027; 93005; 93306; 94640; G0378; J1815; J2543